=== PATIENT | female | born 1980 | race Caucasian/White ===

== ENCOUNTER 2020-08-22 12:44 | Observation (INO) | payer OTHER ==
[2020-08-22 13:11] LABS: COVID AG,FIA SOURCE NASOPHARYNGEAL
== END 2020-08-22 12:50 | disposition home or self-care (01) ==
LOC: 4S 12:44
PROVIDERS: ADMIT Obstetrics & Gynecology; ATTEND Obstetrics & Gynecology
DX: O09.523 Supervision of elderly multigravida, third trimester (principal); Z20.822 Contact with and (suspected) exposure to COVID-19; Z3A.36 36 weeks gestation of pregnancy
CPT/HCPCS: 87426; 99219

== ENCOUNTER 2020-08-23 10:40 | Inpatient (IN) | payer OTHER ==
[~2020-08-23] VITALS: Ht 172.7 cm; Wt 71.5 kg
[2020-08-23] MEDS ORDERED: RINGERS SOLUTION,LACTATED 1,000 ML IV ONE (10:45)
[2020-08-23] MEDS ORDERED: METOCLOPRAMIDE HCL 5 MG/ML 2 ML VIAL IVP ONE (10:45)
[2020-08-23] MEDS ORDERED: CITRIC ACID/SODIUM CITRATE 30 ML SOLUTION UDCUP PO ONE (10:45)
[2020-08-23] MEDS ORDERED: ETHYL ALCOHOL 62% ANTISEPTIC NASAL INHALANT 0.6 ML AMPUL NASAL ONE (11:15)
[2020-08-23 11:21] LABS: BASOPHILS % (AUTO) 0.1 % (0.0-2.0); EOSINOPHILS % (AUTO) 0.7 % (1.0-6.0); HEMATOCRIT 40.2 % (36-46); HEMOGLOBIN 13.4 g/dL (12.0-16.0); LYMPHOCYTES # (AUTO) 2.6 K/uL (1.0-4.8); LYMPHOCYTES % (AUTO) 17.8 % (22.0-44.0); MEAN CORPUSCULAR HEMOGLOBIN 32.3 pg (26.0-34.0); MEAN CORPUSCULAR HGB CONC 33.4 G/dL (31.0-37.0); MEAN CORPUSCULAR VOLUME 97 fL (80-100); MONOCYTES % (AUTO) 7.1 % (2.0-9.0); NEUTROPHILS # (AUTO) 10.7 K/uL (1.8-7.7); NEUTROPHILS % (AUTO) 74.3 % (40.0-70.0); PLATELET COUNT (AUTO) 288 K/uL (150-450); RED BLOOD CELL COUNT(AUTO) 4.16 MIL/uL (4.00-5.20); RED CELL DISTRIBUTION WIDTH 12.6 % (11.5-14.5)
[2020-08-23 11:30] VITALS: BP 111/72
[2020-08-23 11:41] LABS: PLATELET MORPHOLOGY COMMENT LARGE PLTS PRESENT
[2020-08-23] MEDS ORDERED: BUPIVACAINE HCL/DEX-WATER/PF 0.75% 2 ML AMP ITH ONE (12:20)
[2020-08-23] MEDS ORDERED: OXYTOCIN 30 UNITS/LACT RINGERS 500 ML IV ONE (14:00)
[2020-08-23] MEDS ORDERED: LANOLIN 7 GM OINTMENT TP PRN (14:00)
[2020-08-23] MEDS ORDERED: ACETAMINOPHEN 1000 MG/ISO-OSM 100 ML IV ONE (16:45)
[2020-08-23] MEDS ORDERED: DiphenhydrAMINE HCL 50 MG/ML VIAL IVP PRN (17:15)
[2020-08-23] MEDS ORDERED: NALOXONE HCL 0.4 MG/ML VIAL IVP PRN (17:15)
[2020-08-23] MEDS ORDERED: OxyCODONE HCL/ACETAMINOPHEN 5-325 MG TABLET PO PRN (17:15)
[2020-08-23] MEDS ORDERED: ONDANSETRON HCL 4 MG/2 ML VIAL IVP PRN (17:15)
[2020-08-23] MEDS: KETOROLAC TROMETHAMINE 30 MG/ML VIAL IVP SCH (18:36)
[2020-08-23] MEDS ORDERED: OXYGEN THERAPY IH SCH (20:00)
[2020-08-23] MEDS: ETHYL ALCOHOL 62% ANTISEPTIC NASAL INHALANT 0.6 ML AMPUL NASAL SCH (21:24)
[2020-08-23] MEDS: RINGERS SOLUTION,LACTATED 1,000 ML IV SCH (21:24)
[2020-08-23] MEDS: MAGNESIUM HYDROXIDE SUSPENSION 30 ML UDCUP PO SCH (21:24)
[2020-08-24] MEDS: KETOROLAC TROMETHAMINE 30 MG/ML VIAL IVP SCH ×3 (00:04→12:13)
[2020-08-24] MEDS ORDERED: FentaNYL CITRATE PF 100 MCG/2 ML VIAL IVP ONE (05:26)
[2020-08-24] MEDS ORDERED: MORPHINE SULFATE/PF 0.5 MG/ML 10 ML AMP IVP ONE (05:26)
[2020-08-24] MEDS: RINGERS SOLUTION,LACTATED 1,000 ML IV SCH (05:30)
[2020-08-24 06:29] LABS: BASOPHILS % (AUTO) 0.1 % (0.0-2.0); EOSINOPHILS % (AUTO) 0 % (1.0-6.0); HEMATOCRIT 33.8 % (36-46); HEMOGLOBIN 11.5 g/dL (12.0-16.0); LYMPHOCYTES # (AUTO) 1.8 K/uL (1.0-4.8); LYMPHOCYTES % (AUTO) 8.1 % (22.0-44.0); MEAN CORPUSCULAR HEMOGLOBIN 32.6 pg (26.0-34.0); MEAN CORPUSCULAR VOLUME 96 fL (80-100); MONOCYTES # (AUTO) 1.4 K/uL (0.1-1.0); MONOCYTES % (AUTO) 6.1 % (2.0-9.0); NEUTROPHILS # (AUTO) 19.4 K/uL (1.8-7.7); PLATELET COUNT (AUTO)-OB 250 K/uL (150-450); RED BLOOD CELL COUNT(AUTO) 3.52 MIL/uL (4.00-5.20); RED CELL DISTRIBUTION WIDTH 12.4 % (11.5-14.5)
[2020-08-24 06:32] LABS: NEUTROPHILS % (AUTO) 85.7 % (40.0-70.0)
[2020-08-24] MEDS: MAGNESIUM HYDROXIDE SUSPENSION 30 ML UDCUP PO SCH ×2 (09:08→21:24)
[2020-08-24] MEDS: ENOXAPARIN SODIUM 40 MG/0.4 ML PF SYRINGE SQ SCH (09:09)
[2020-08-24] MEDS: ETHYL ALCOHOL 62% ANTISEPTIC NASAL INHALANT 0.6 ML AMPUL NASAL SCH (09:09)
[2020-08-24] MEDS: OxyCODONE HCL/ACETAMINOPHEN 5-325 MG TABLET PO PRN ×2 (09:36→20:28)
[2020-08-24] MEDS: IBUPROFEN 800 MG TABLET PO PRN (17:48)
[2020-08-25] MEDS: IBUPROFEN 800 MG TABLET PO PRN ×3 (00:30→21:39)
[2020-08-25] MEDS ORDERED: DEXAMETHASONE SOD PHOS 4 MG/ML VIAL IVP ONE (01:22)
[2020-08-25] MEDS ORDERED: KETOROLAC TROMETHAMINE 60 MG/2 ML VIAL IM ONE (01:22)
[2020-08-25] MEDS ORDERED: PHENYLEPHRINE HCL 10 MG/ML VIAL IVP ONE (01:22)
[2020-08-25] MEDS ORDERED: ONDANSETRON HCL 4 MG/2 ML VIAL IVP ONE (01:22)
[2020-08-25] MEDS ORDERED: OXYTOCIN 10 UNITS/ML VIAL IM ONE (01:22)
[2020-08-25] MEDS ORDERED: EPHEDrine SULFATE 50 MG/ML VIAL IM ONE (01:22)
[2020-08-25] MEDS: OxyCODONE HCL/ACETAMINOPHEN 5-325 MG TABLET PO PRN ×4 (04:10→17:31)
[2020-08-25] MEDS: MAGNESIUM HYDROXIDE SUSPENSION 30 ML UDCUP PO SCH ×2 (09:15→21:39)
[2020-08-25] MEDS: ETHYL ALCOHOL 62% ANTISEPTIC NASAL INHALANT 0.6 ML AMPUL NASAL SCH ×2 (09:15→21:40)
[2020-08-25] MEDS: ENOXAPARIN SODIUM 40 MG/0.4 ML PF SYRINGE SQ SCH (09:15)
[2020-08-26] MEDS: IBUPROFEN 800 MG TABLET PO PRN (05:04)
[2020-08-26] MEDS ORDERED: PERCT PO (08:20)
[2020-08-26] MEDS ORDERED: FERR-89 PO (08:21)
[2020-08-26] MEDS ORDERED: DOCU-275 PO (08:21)
[2020-08-26] MEDS ORDERED: IBUP-2071 PO (08:21)
[2020-08-26] MEDS ORDERED: MACR100 PO (08:31)
[2020-08-26] MEDS: ETHYL ALCOHOL 62% ANTISEPTIC NASAL INHALANT 0.6 ML AMPUL NASAL SCH (08:47)
[2020-08-26] MEDS: ENOXAPARIN SODIUM 40 MG/0.4 ML PF SYRINGE SQ SCH (08:47)
== END 2020-08-26 10:55 | disposition home or self-care (01) | DRG 787 ==
LOC: OBSVTOIN 10:40 → 4S 10:40
PROVIDERS: ADMIT Obstetrics & Gynecology; ATTEND Obstetrics & Gynecology
PROC: 10D00Z1 Extraction of Products of Conception, Low, Open Approach (ICD-10-PCS; principal; 2020-08-23)
DX: O24.429 Gestational diabetes mellitus in childbirth, unspecified control (principal); O99.12 Other diseases of the blood and blood-forming organs and certain disorders involving the immune mechanism complicating childbirth; D68.61 Antiphospholipid syndrome; O69.81X0 Labor and delivery complicated by cord around neck, without compression, not applicable or unspecified; Z3A.37 37 weeks gestation of pregnancy; Z37.0 Single live birth
CPT/HCPCS: 85025; 86850; 86900; 86901; 86923; 87081; J0131; J0690; J1100; J1650; J1885; J2274; J2370; J2405; J2590; J2765; J3010; J3490; J7120